=== PATIENT | female | born 1930 | race Caucasian/White ===

== ENCOUNTER 2016-11-16 11:13 | Inpatient (IN) | payer OTHER ==
[~2016-11-16] VITALS: Ht 149.9 cm; Wt 69.8 kg
--- NOTE | ~2016-11-16 | H ---
[facility] [place] [address] HISTORY AND PHYSICAL Name: SINDHU KONG Room #: 534-P ADM IN M.R.#: [id number] Admission: 11/16/16 Attend Phys: Brown Foreman MD Discharge: Date of : [birth year] Report #: [id number] THIS REPORT FOR: //name// CC: Brown Reynoso DATE OF SERVICE: 11/16/2016 REASON FOR ADMISSION: Syncopal event. HISTORY OF PRESENT ILLNESS: The patient is an 86-year-old female, who had an episode of severe abdominal pain today in the setting of passage of bowel movement. She subsequently had an episode where she was dizzy and may have passed out. Hence, EMS was called, and she was brought to the hospital. By that time, she was seen by me in the emergency room. She feels completely back to normal. She is not dizzy, she has no syncopal signs. She has no abdominal pain and has no symptoms. She reports that she felt completely well, when she has had a bowel movement. She does report that she has had similar episodes in the past, been having bowel movements, and does tend to have what she seems to describe as irritable bowel syndrome, where she has intermittent episodes of loose stools, which she appears to take an antispasmodic for, which are subsequently improved, and she reports she sometimes has difficulty with stools causing abdominal pain. She has not had any nausea, vomiting, fevers, chills, or other symptoms. She has been admitted for further evaluation of these findings at this time. PAST MEDICAL HISTORY: Includes, 1. Diabetes. 2. Cardiomyopathy. 3. GERD. 4. Hyperlipidemia. PAST SURGICAL HISTORY: Includes, 1. Mastectomy for right breast cancer. 2. Hysterectomy for uterine cancer. 3. Cataract extraction. 4. Humerus fracture. 5. Cholecystectomy. MEDICATIONS: Per reconciliation note. ALLERGIES: Reported to LISINOPRIL, MORPHINE, PHENERGAN, and VERAPAMIL. SOCIAL HISTORY: No tobacco or alcohol use. Lives with her daughter, uses a walker. [facility] [address] [place] [address] HISTORY AND PHYSICAL Name: SINDHU KONG Room #: 534-P ADM IN [facility].#: [id number] Admission: 11/16/16 Attend Phys: Brown Foreman MD Discharge: Date of : [birth year] Report #: [id number] REVIEW OF SYSTEMS: Twelve-point review of system was performed and negative, except as mentioned in the history of present illness. PHYSICAL EXAMINATION: VITAL SIGNS: Afebrile, pulse is 64, respiratory rate of 14, O2 sat 97% on room air, blood pressure of 145/67. GENERAL: Awake and alert, in no acute distress. HEENT: Unremarkable. NECK: No JVD or thyromegaly. CARDIOVASCULAR: S1 and S2 present and regular. RESPIRATORY: Air entry present bilaterally. ABDOMEN: Soft and nontender. EXTREMITIES: Without edema. NEUROLOGIC: Awake and alert, without obvious focal findings. SKIN: Unremarkable. No rashes or lesions. LABS AND INVESTIGATIONS: CBC with mild leukocytosis of 12.1. Chemistry with elevated creatinine of 1.4, BUN is 23, glucose is 260. Urinalysis with nitrite positive, 2+ leukocyte esterase, multiple WBC clumps. ASSESSMENT AND PLAN: This is an 86-year-old female, presenting with abdominal pain and syncopal spell, now resolved. 1. Abdominal pain, suspect this most likely was related to stool and probably represents irritable bowel. No obvious acute emergent abdominal pathology is suspected at this time. 2. Syncopal episode, likely vasovagal in the setting of straining for stool. 3. Leukocytosis and pyuria concerning for urinary tract infection. The patient has been started on Rocephin, and we will follow culture data results. 4. Chronic kidney disease 3. Creatinine mildly up from baseline, monitor and hydrate. 5. Deep venous thrombosis prophylaxis with low dose Lovenox. <ELECTRONICALLY SIGNED> By: Brown Foreman MD 11/16/16 1549 1426 1525 Brown Foreman MD /nt
[~2016-11-16 11:13] MED LIST: ADALAT CC60 MG; AFEDITAB CR30 MG PO; ASPIRIN325; CARVEDILOL12.5 MG PO; CEFDINIR300 MG PO; CIPRO500 MG PO; CIPROFLOXACIN250 M2; COLACE100 MG PO; DETROL LA2 MG PO; DETROL2 M1 PO; DIABETA 2.5MG2.5 MG PO; DIOVAN40 MG; ENABLEX15 MG PO; FISH OIL 1,001000 M1; FUROSEMIDE 40 M40 M1; KEFLEX500 MG PO; LANOXIN 0.120.125 M1 PO; LIPITOR 20 MG T20 M1 PO; LIPITOR20 MG PO; LOPRESSOR 50 MG50 M1; LOPRESSOR50 PO; NIFEDICAL XL60 MG PO; NITRO-TIME6.5 MG; NITRO-TIME6.5 MG PO; NORCO 5-325 TA1 EACH PO; OCUVITE TABLET1 EAC1 PO; ORAZINC220 MG PO; RANITIDINE 150150 MG PO; SILVADENE20 GM; TOPROL XL50 MG; TRIAMCINOLONE A80 G2; TYLENOL325 MG PO; VICODIN 5-5001 EACH PO; VITAMIN D2000 UNI1 PO; VITAMINC500 PO
[2016-11-16 11:14] VITALS: BP 138/60
[2016-11-16 11:35] LABS: ABSOLUTE NEUTROPHILS 6.7 thou/uL (1.4-8.2); EOSINOPHILS 2.3 % (0.0-3.0); HEMATOCRIT 38.9 % (37.0-47.0); HEMOGLOBIN 12.9 gm/dL (12.0-15.0); LYMPHOCYTES 36.6 % (24.0-44.0); MCH 31.5 pg (26.0-34.0); MCHC 33.1 g/dL (28.0-37.0); MCV 95.3 fL (80.0-100.0); MONOCYTES 4.5 % (1.0-8.0); PLATELET COUNT 298 thou/uL (150-400); POLYS 55.6 % (36.0-66.0); RBC 4.08 mil/uL (4.20-5.00); RDW 13.7 % (10.5-14.5); WBC 12.1 thou/uL (4.0-11.0)
[2016-11-16 11:36] LABS: MANUAL DIFF NO
[2016-11-16 11:44] LABS: CALCIUM 9.2 mg/dL (8.5-10.1); CREATININE 1.4 mg/dL (0.6-1.0); POTASSIUM 4.2 mmol/L (3.5-5.1)
[2016-11-16 11:49] LABS: ALBUMIN 3.1 g/dL (3.4-5.0); TOTAL BILIRUBIN 0.6 mg/dL (<0.1-1.0); TOTAL PROTEIN 7.1 g/dL (6.4-8.2)
[2016-11-16 11:49] LABS: URINE BLOOD 1+ (Negative); URINE COLOR ORANGE; URINE GLUCOSE-RANDOM* TRACE (Negative); URINE KETONES TRACE (Negative); URINE LEUKOCYTES-REFLEX 2+ (Negative); URINE PROTEIN (DIPSTICK) 2+ (Negative); URINE SPECIFIC GRAVITY 1.025 (1.003-1.035)
[2016-11-16 11:53] LABS: ICTOTEST (BILI CONFIRMATORY) Negative (Negative); URINE BILIRUBIN NEGATIVE (Negative)
[2016-11-16] MEDS ORDERED: TOVIAZ8 MG PO (11:57)
[2016-11-16 12:07] LABS: CASTS None Seen /LPF (None Seen); SQUAMOUS 0-3 Few /LPF (0-3); URINE WBC-REFLEX >25 Many /HPF (0-5)
[2016-11-16 12:08] LABS: CRYSTALS None Seen /LPF (None Seen); URINE RBC 0-2 Rare /HPF (0-2); WBC CLUMPS Packed (None Seen)
[2016-11-16 14:29] VITALS: BP 151/45
[2016-11-16 14:40] VITALS: BP 144/63
[2016-11-16 19:12] VITALS: BP 159/68
[2016-11-17 03:41] VITALS: BP 150/59
[2016-11-17 04:43] LABS: HEMATOCRIT 34.4 % (37.0-47.0); HEMOGLOBIN 11.7 gm/dL (12.0-15.0); MCH 32.1 pg (26.0-34.0); MCV 94.5 fL (80.0-100.0); RBC 3.64 mil/uL (4.20-5.00); RDW 13.9 % (10.5-14.5)
[2016-11-17 04:57] LABS: CALCIUM 8.8 mg/dL (8.5-10.1); CREATININE 0.9 mg/dL (0.6-1.0); POTASSIUM 3.8 mmol/L (3.5-5.1)
[2016-11-17 07:45] VITALS: BP 150/58
[2016-11-17 15:00] VITALS: BP 163/76
[2016-11-17 19:55] VITALS: BP 147/70
[2016-11-18 03:44] VITALS: BP 148/60
[2016-11-18 05:19] LABS: HEMATOCRIT 33.5 % (37.0-47.0); HEMOGLOBIN 11.3 gm/dL (12.0-15.0); MCH 32.2 pg (26.0-34.0); MCHC 33.7 g/dL (28.0-37.0); MCV 95.5 fL (80.0-100.0); RBC 3.51 mil/uL (4.20-5.00); RDW 13.9 % (10.5-14.5); WBC 8.9 thou/uL (4.0-11.0)
[2016-11-18 05:30] LABS: CALCIUM 8.6 mg/dL (8.5-10.1); CREATININE 0.9 mg/dL (0.6-1.0); POTASSIUM 3.7 mmol/L (3.5-5.1)
[2016-11-18 08:26] VITALS: BP 143/64
[2016-11-18] MEDS ORDERED: FLOMAX0.4 MG PO (09:35)
[2016-11-18] MEDS ORDERED: KEFLEX500 MG PO (09:35)
[2016-11-18 09:50] VITALS: BP 143/64
[2016-11-18 10:32] VITALS: BP 143/64
== END 2016-11-18 11:08 | disposition home health service (06) | DRG 690 ==
LOC: ER 11:13 → 5S 13:03 → EROBS 13:03 → 5S 14:28
PROVIDERS: Hospitalist; Physician Assistant
DX: N39.0 Urinary tract infection, site not specified (principal); I42.9 Cardiomyopathy, unspecified; D72.829 Elevated white blood cell count, unspecified; K21.9 Gastro-esophageal reflux disease without esophagitis; H35.30 Unspecified macular degeneration; E11.42 Type 2 diabetes mellitus with diabetic polyneuropathy; B96.1 Klebsiella pneumoniae [K. pneumoniae] as the cause of diseases classified elsewhere; Z92.21 Personal history of antineoplastic chemotherapy; E11.22 Type 2 diabetes mellitus with diabetic chronic kidney disease; N18.3 Chronic kidney disease, stage 3 (moderate); E78.5 Hyperlipidemia, unspecified; Z90.11 Acquired absence of right breast and nipple; Z92.3 Personal history of irradiation; Z90.710 Acquired absence of both cervix and uterus; Z90.49 Acquired absence of other specified parts of digestive tract; Z98.49 Cataract extraction status, unspecified eye; Z88.6 Allergy status to analgesic agent; Z88.8 Allergy status to other drugs, medicaments and biological substances; Z87.81 Personal history of (healed) traumatic fracture
CPT/HCPCS: 10086

== ENCOUNTER 2016-12-13 13:14 | Observation (INO) | payer OTHER ==
[~2016-12-13] VITALS: Ht 149.9 cm; Wt 66.7 kg
--- NOTE | ~2016-12-13 | 2DMMODE ---
[facility] [address] [place] [address] 2 D/M-MODE ECHOCARDIOGRAM Name: LUANNSINDHUMarcelina JOSEPH Room #: 310-P ADM IN M.R.#: [id number] Admission: 12/13/16 Attend Phys: Gus Tilley, Discharge: Date of : [birth year] Date of Service: 12/14/16 1425 Report #: [id number] THIS REPORT FOR: //name// APPROVED REPORT Study performed: 12/14/2016 12:42:20 EXAM: Comprehensive 2D, Doppler, and color-flow Echocardiogram Patient Location: Bedside Room #: 310 Status: routine Other Information Study Quality: Good Indications Atrial Fibrillation Syncope 2D Dimensions RVDd: 27.28 mm LVEF(%): 48.13 (>50%) IVSd: 13.29 (7-11mm) LVOT Diam: 19.69 (18-24mm) LVDd: 39.76 mm PWd: 12.43 (7-11mm) Ascending Ao: 30.78 (22-36mm) LVDs: 30.28 (25-40mm) Aortic Root: 30.75 mm Painting's LVEF: 48.13 % Volumes Left Atrial Volume (Systole) Single Plane 4CH: 55.61 mL Single Plane 2CH: 50.71 mL LA ESV Index: 34.00 mL/m2 Aortic Valve AoV Peak Ricardo.: 1.40 m/s AO Peak Gr.: 7.84 mmHg LVOT Max P.18 mmHg LVOT Max V: 1.02 m/s VALENCIA Vmax: 2.22 cm2 Mitral Valve E/A Ratio: 0.7 MV Decel. Time: 162.49 ms MV E Max Ricardo.: 0.93 m/s MV A Ricardo.: 1.35 m/s MV PHT: 47.12 ms [facility] [address] [address] 2 D/M-MODE ECHOCARDIOGRAM Name: SINDHU KONG Room #: 310-P [facility]..#: [id number] Admission: 12/13/16 Attend Phys: Gus Tilley, Discharge: Date of : [birth year] Date of Service: 12/14/16 1425 Report #: [id number] IVRT: 83.04 ms Pulmonary Valve PV Peak Ricardo.: 0.83 m/s PV Peak Gr.: 2.77 mmHg Pulmonary Vein P Vein S: 0.72 m/s P Vein A: 0.36 m/s P Vein D: 0.36 m/s P Vein A Dur.: 101.5 msec P Vein S/D Ratio: 2.00 Tricuspid Valve TR Peak Ricardo.: 2.96 m/s RAP Estimate: 5.00 mmHg TR Peak Gr.: 35.12 mmHg PA Pressure: 40.00 mmHg Left Ventricle The left ventricle is normal size. There is normal LV segmental wall motion. Mild basal septal hypertrophy is present. Left ventricular systolic function is normal. LVEF is 50-55%. Grade I - abnormal relaxation pattern. Right Ventricle The right ventricle is normal size. The right ventricular systolic function is normal. Atria Left atrium is mildly dilated. The right atrium size is normal. Aortic Valve Aortic valve is calcified. No aortic regurgitation is present. There is no aortic valvular stenosis. Mitral Valve Moderate mitral annular calcification. The mitral valve is mildly thickened. Mild mitral regurgitation. Tricuspid Valve The tricuspid valve is normal in structure. There is trace to mild tricuspid regurgitation. The right atrial pressure is estimated at 5 mmHg. There is mild-moderate pulmonary hypertension with an estimated PAP of 40mmHg. Pulmonic Valve The pulmonary valve is normal in structure. Trace pulmonic regurgitation. [address] [address] 2 D/M-MODE ECHOCARDIOGRAM Name: SINDHU KONG Room #: 310-P [facility] IN [facility]#: [id number] Admission: 12/13/16 Attend Phys: Gus Tilley, Discharge: Date of : [birth year] Date of Service: 12/14/16 1425 Report #: [id number] Great Vessels The aortic root is normal in size. The ascending aorta is normal in size. IVC is normal in size and collapses >50% with inspiration. Pericardium There is no pericardial effusion. <Conclusion> The left ventricle is normal size. LVEF is 50-55%. Left atrium is mildly dilated. Aortic valve is calcified. No aortic regurgitation is present. There is no aortic valvular stenosis. Moderate mitral annular calcification. The mitral valve is mildly thickened. Mild mitral regurgitation. The tricuspid valve is normal in structure. There is trace to mild tricuspid regurgitation. The right atrial pressure is estimated at 5 mmHg. There is mild-moderate pulmonary hypertension with an estimated PAP of 40mmHg. The pulmonary valve is normal in structure. Trace pulmonic regurgitation. <ELECTRONICALLY SIGNED> By: Pedro Pablo Bell MD 12/14/16 1425 1425 1425 Pedro Pablo Bell MD /INF
--- NOTE | ~2016-12-13 | EKG ---
[address] [address] ELECTROCARDIOGRAM REPORT Name: SINDHU KONG Room #: 310-P ADM IN M.R.#: [id number] Admission: 12/13/16 Attend Phys: Gus Tilley MD Discharge: Date of : [birth year] Report #: [id number] THIS REPORT FOR: //name// [facility] ED Test Date: 2016-12-13 Test Time: 13:34:21 Pat Name: SINDHU KONG Department: Room: 310 Gender: F Striper: HODA : 1930 Requested By: Shahid Lu Order Number: [id number] MD: Brown Vizcaino Measurements Intervals [place] Rate: 70 P: -10 NE: 158 QRS: -6 QRSD: 104 T: -19 QT: 380 QTc: 410 Interpretive Statements Sinus rhythm Abnormal R-wave progression, early transition Probable left ventricular hypertrophy Borderline T abnormalities, inferior leads Compared to ECG 04/03/2016 16:25:55 T-wave abnormality now present Sinus arrhythmia no longer present Electronically Signed On 12-13-2016 22:30:34 CDT by Brown Vizcaino [email or web address] <ELECTRONICALLY SIGNED> By: Brown Vizcaino MD 12/13/16 2230 1334 1334 Brown Vizcaino MD /EPI
[2016-12-13 13:14] VITALS: BP 140/54
[~2016-12-13 13:14] MED LIST changes: +FLOMAX0.4 MG PO; +TOVIAZ8 MG PO
[2016-12-13 13:54] LABS: ABSOLUTE NEUTROPHILS 5.3 thou/uL (1.4-8.2); BASOPHILS 1.3 % (0.0-2.0); EOSINOPHILS 2.5 % (0.0-3.0); HEMATOCRIT 36.3 % (37.0-47.0); HEMOGLOBIN 12.4 gm/dL (12.0-15.0); LYMPHOCYTES 36.4 % (24.0-44.0); MCH 32.7 pg (26.0-34.0); MCHC 34.1 g/dL (28.0-37.0); MONOCYTES 5.2 % (1.0-8.0); PLATELET COUNT 287 thou/uL (150-400); POLYS 54.6 % (36.0-66.0); RBC 3.78 mil/uL (4.20-5.00); RDW 14.4 % (10.5-14.5); WBC 9.6 thou/uL (4.0-11.0)
[2016-12-13 14:07] LABS: CALCIUM 8.6 mg/dL (8.5-10.1); CREATININE 1.2 mg/dL (0.6-1.0); POTASSIUM 3.8 mmol/L (3.5-5.1)
[2016-12-13 14:08] LABS: MANUAL DIFF NO
[2016-12-13 14:13] LABS: ALBUMIN 2.9 g/dL (3.4-5.0); TOTAL BILIRUBIN 0.4 mg/dL (<0.1-1.0); TOTAL PROTEIN 6.5 g/dL (6.4-8.2)
[2016-12-13 15:36] LABS: URINE BILIRUBIN NEGATIVE (Negative); URINE BLOOD NEGATIVE (Negative); URINE COLOR YELLOW; URINE GLUCOSE-RANDOM* NEGATIVE (Negative); URINE KETONES NEGATIVE (Negative); URINE LEUKOCYTES-REFLEX TRACE (Negative); URINE PROTEIN (DIPSTICK) TRACE (Negative); URINE UROBILINOGEN 0.2 E.U./dl (0.2-1.0)
[2016-12-13 17:05] VITALS: BP 133/66
[2016-12-13 17:30] VITALS: BP 143/52
[2016-12-13 20:03] VITALS: BP 157/58
[2016-12-14] VITALS (7 sets, daily range): BP systolic 158–210; BP diastolic 68–81
[2016-12-14 05:13] LABS: HEMATOCRIT 33.7 % (37.0-47.0); HEMOGLOBIN 11.5 gm/dL (12.0-15.0); MCH 32.4 pg (26.0-34.0); MCHC 34.1 g/dL (28.0-37.0); MCV 94.9 fL (80.0-100.0); RBC 3.55 mil/uL (4.20-5.00); RDW 14.4 % (10.5-14.5); WBC 10.1 thou/uL (4.0-11.0)
[2016-12-14 05:18] LABS: CALCIUM 8.2 mg/dL (8.5-10.1); CREATININE 0.8 mg/dL (0.6-1.0); POTASSIUM 3.6 mmol/L (3.5-5.1)
[2016-12-14 11:41] LABS: FOLIC ACID 9.1 ng/mL (8.6-58.9); TSH 1.507 uIU/mL (0.358-3.740)
[2016-12-15] VITALS: BP 177/76
[2016-12-15 04:00] VITALS: BP 181/70
[2016-12-15 04:07] LABS: GLYCOHEMOGLOBIN (HGB A1C) 6.1 % (4.8-5.6)
[2016-12-15 07:45] VITALS: BP 179/70
[2016-12-15 12:08] VITALS: BP 171/63
[2016-12-15] MEDS ORDERED: FELODIPINE 5 MG5 M1 PO (15:55)
[2016-12-15] MEDS ORDERED: HUMALOG100 UNIT/1 SUBQ (15:55)
[2016-12-15] MEDS ORDERED: B12INJ IM (15:59)
[2016-12-15] MEDS ORDERED: LIPITOR 20 MG T20 M1 PO (16:07)
[2016-12-15] MEDS ORDERED: TOVIAZ8 MG PO (16:09)
[2016-12-15] MEDS ORDERED: TYLENOL325 MG PO (16:09)
[2016-12-18 03:15] LABS: ALPHA TOCOPHEROL 13.1 mg/L (6.5-21.5)
== END 2016-12-15 18:00 ==
LOC: ER 13:14 → EROBS 15:30 → 3N 15:30 → 5S 17:12 → 3N 21:41
PROVIDERS: Internal Medicine; Physician Assistant; Psychiatry & Neurology Neurology
DX: R55 Syncope and collapse (principal); I48.91 Unspecified atrial fibrillation; E11.9 Type 2 diabetes mellitus without complications; I10 Essential (primary) hypertension; E78.5 Hyperlipidemia, unspecified